=== PATIENT | male | born 1980 | race African-American/Black ===

== ENCOUNTER → 2016-06-09 | Day surgery (SDC) | payer OTHER ==
[~2016-06-09] MED LIST: FENTANYL PF 100 MCG/2 ML VIAL. IV PRN; HYDROMORPHONE 2 MG/ML VIAL. IV PRN; IV RINGERS,LACTATED 1000ML 1,000 ML IV SCH; LIDOCAINE 1% 1 ML SYRINGE. ID PRN; MORPHINE SULFATE 2 MG/ML DISP.SYRIN. IV PRN; ONDANSETRON PF 4 MG/2 ML VIAL. IV PRN; PROCHLORPERAZINE 10 MG/2 ML VIAL. IV PRN; PROPOFOL 20 ML IV ONE
--- NOTE | 2016-06-09 09:54 | PDOC1 ---
History and Physical Date of Admission Date of Admission DATE: 06/09/16 TIME: 09:46 Identification/Chief Complaint Chief Complaint Rectal bleeding/anemia Source Source: Chart review, Patient History of Present Illness History of Present Illness 35 y/o male with intermittent rectal bleeding, generally with normal stool and painless. No D, C, melena. Labs from PCP office showed near-microcytic anemia with hemoglobin of 10. Only complaints of occasional LLQ cramping relieved with stooling. No prior endoscopies. No dyspeptic symptoms, PUD, GB, liver or pancreatic history. No weight loss or anorexia. No GI family history. Past Medical History Past Medical History [facility], otherwise negative. Past Surgical History Past Surgical History None Family History Family History Denies meaningful family health issues. Social History ALCOHOL: occassional Drugs: Marijuana Current Medications Current Medications Current Medications Lactated Ringer's (Iv Lactated Ringers) 1,000 ml @ 75 mls/hr [id number] IV Last administered on 06/09/16t 09:45; Start 06/09/16 at 09:45; Stop 06/10/16 at 09:44 ; Status UNV Active Scripts Active Reported No Known Medications Prior To Admisstion (Info) Each 1 Each Allergies Allergies: Coded Allergies: No Known Drug Allergies (Unverified , 06/09/16) ROS Review of System 10-point review negative. Physical Exam General: Alert, Oriented X3, Cooperative, No acute distress Lungs: Clear to auscultation Heart: S1S2, RRR, no gallops, no murmurs Abdomen: Normal bowel sounds, Soft, No tenderness, No hepatosplenomegaly, No masses Rectal Exam: deferred (to time of procedure) Extremities: No cyanosis, No edema Skin: No significant lesion Neuro: Normal gait, Normal speech, Strength at 5/5 X4 ext, Normal tone, Sensation intact, Cranial nerves 3-12 NL, Reflexes 2+ Psych/Mental Status: Mental status NL, Mood NL Vitals Vitals Vital Signs Date Time Temp Pulse Resp B/P Pulse Ox O2 Delivery O2 Flow Rate FiO2 06/09/16 09:18 97 68 18 98 97.0 VTE Prophylaxis Ordered VTE Prophylaxis Devices: No VTE Pharmacological Prophylaxi: No Assessment/Plan Assessment/Plan IMP: 1. Painless rectal bleeding. 2. Anemia with near-microcytic indices. PLAN: EGD/colonoscopy. RASHMI LANE MD Jun 09, 2016 09:53
[2016-06-09 10:47] VITALS: BP 119/66
--- NOTE | 2016-06-10 13:49 | PATHOLOGY ---
PATHOLOGY REPORT * * * * * * * * FINAL DIAGNOSIS: A. Duodenal biopsy, second portion duodenum: - No significant pathologic abnormalities. B. Gastric biopsy, antrum: - Active chronic gastritis, marked, with Helicobacter organisms identified. C. Colon biopsy, distal sigmoid polyp: - Tubular adenoma. COMMENT: Sections of the second portion duodenal biopsy reveal segments of small intestine mucosa. Where best oriented, the mucosal villi appear normal. There are no sprue-like changes or significant inflammatory changes. Sections of the gastric antral biopsy show marked active chronic inflammation. An immunoperoxidase stain for Helicobacter is obtained and reveals focally prominent numbers of Helicobacter organisms. There is no evidence of malignancy. Sections of the distal sigmoid colon biopsy reveal a tubular adenoma showing no high-grade dysplasia or evidence of malignancy. (JPM:mgjose francisco; d/t: 06/10/16) Special Stain Performed: Immunoperoxidase stain for Helicobacter (B1) REPORT ELECTRONICALLY SIGNED BY: Young Faulkner M.D. DATE/TIME: 06/10/2016 13:48 * * * * * * * * GROSS PATHOLOGY: A. Received in formalin labeled "Zackery Rojas and second portion of duodenum bx," are 2 segments of leonard soft tissue measuring 0.8 x 0.3 x 0.2 cm in aggregate dimensions and measuring 0.3 and 0.5 cm in maximum dimension. The specimen is submitted entirely in cassette A1. B. Received in formalin labeled "Joe Zackery and antral bx," are 2 segments of leonard soft tissue measuring 1.0 x 0.2 x 0.2 cm in aggregate dimensions and measuring 0.4 and 0.6 cm in maximum dimension. The specimen is submitted entirely in cassette B1. C. Received in formalin labeled "Zackery Rojas and distal sigmoid polyp," are 4 segments of leonard soft tissue measuring 1.7 x 0.5 x 0.3 cm in aggregate dimensions and ranging from 0.3 to 0.6 cm in maximum dimension. The specimen is submitted entirely in cassette C1. (TTL; 06/09/2016) INITIAL CPT CODE(S): A; 27846 B; 54563, 61001 C; 71182 Professional services performed by [facility] at [facility] [address] [place] [id number] Technical services performed by [facility] at [address] [place] [address], [address], [place] [address]. SPECIMEN(S) RECEIVED: A.2nd portion duodenum biopsy B.Antral biopsy C.Distal sigmoid polyp CLINICAL HISTORY: Anemia PATIENT: ZACKERY ROJAS /AGE: 509/08/1980 (Age: 35) PATIENT #: [id number] ALT CASE #: SPECIMEN COLLECTION DATE: 06/09/2016 SPECIMEN RECEIVED DATE: 06/09/2016 [facility] - [address] [place] [address] - PHONE: [phone] * * * END OF REPORT * * *
== END ==
LOC: ENDOS 08:52
PROVIDERS: ATTEND Internal Medicine Gastroenterology
DX: K63.5 Polyp of colon (principal); D50.8 Other iron deficiency anemias; K29.50 Unspecified chronic gastritis without bleeding; K64.1 Second degree hemorrhoids; K21.0 Gastro-esophageal reflux disease with esophagitis; K31.9 Disease of stomach and duodenum, unspecified
CPT/HCPCS: 43239; 45385; J2704; 88305; 88342; G0641